=== PATIENT | female | born 1960 | race Caucasian/White ===

== ENCOUNTER 2017-10-05 11:32 | Day surgery (SDC) | payer BC ==
[~2017-10-05] VITALS: Ht 172.7 cm; Wt 95.5 kg
[~2017-10-05 11:32] MED LIST: COZAAR50 MG; HYDROCODON-ACE1 EAC7 PO; HYDROCODONE-APA1 TAB PO; IBUPROFEN200 MG PO; LEXAPRO20 MG PO; LISINOPRIL10 MG PO; MEDROL DOSE PACK4 MG PO; NORVASC10 MG PO; SOMA350 MG PO
[2017-10-05 12:48] LABS: BASOPHILS 0.5 % (0-2); HEMOGLOBIN 15.8 g/dL (12-16); IMMATURE GRANULOCYTES 0.2 % (0-5); LYMPHOCYTES 35.3 % (15-50); MCH 31.6 pg (26.0-34.0); MCHC 34.3 g/dL (31.0-37.0); MEAN PLATELET VOLUME 10.8 fL (7.4-10.4); MONOCYTES 7.4 % (2-11); NEUTROPHILS 55.6 % (40-80); PLATELET COUNT 208 10x3/uL (130-400); RDW 12.8 % (11.5-14.5); WBC 6.2 10x3/uL (4.8-10.8)
[2017-10-05] MEDS ORDERED: RESTORIL7.5 MG PO (13:01)
[2017-10-05 13:05] VITALS: BP 111/80; Ht 172.7 cm; Wt 95.5 kg
[2017-10-05 13:18] LABS: CALC OSMOLALITY 277 mosm/kg (275-300); CALCIUM 9.4 mg/dL (8.5-10.1); CHLORIDE - SERUM 102 mmol/L (98-107); CREATININE - SERUM 0.7 mg/dL (0.6-1.3); GLUCOSE 99 mg/dL (74-106); SODIUM 140 mmol/L (136-145); UREA NITROGEN 9 mg/dL (7-18); eGFR NON AFRICAN AMERICAN > 90 mL/min (90-120)
--- NOTE | 2017-10-13 11:51 | OP ---
PATIENT NAME: CHAPARRITA AHUJA MEDICAL RECORD: [id number] :60 LOCATION:D.[facility] ADMISSION DATE: SURGEON: JOSLYN GUTIERREZ DO DATE OF OPERATION: 10/05/2017 PROCEDURES: EGD with biopsy and colonoscopy with biopsy and polypectomy. INDICATIONS FOR PROCEDURE: Left upper quadrant abdominal pain, right lower quadrant abdominal pain, heartburn, H. pylori gastritis status post treatment, diarrhea. SCOPE: Olympus video gastroscope and Olympus video pediatric colonoscope. MEDICATIONS: Propofol 750 mg IV per anesthesia between the 2 procedures. WITHDRAWAL TIME: On colonoscopy 22 minutes. ESTIMATED BLOOD LOSS: Minimal. COMPLICATIONS: None. FINDINGS: Informed consent was given. The patient was made comfortable with the above medication. After reaching an adequate level of sedation by slow IV push, the patient was placed on her left side. The gastroscope was then advanced under direct visualization through the mouth to the second portion of the duodenum. The entire esophagus appeared normal. At the GE junction, there was evidence of LA class C reflux-induced esophagitis. The endoscope was advanced beyond the GE junction into the stomach and retroflexed to view the cardia and fundus which appeared normal. There was possibly a very small sliding type hiatal hernia, but this was not severe. The body of the stomach as well as the antrum and prepyloric region revealed some erythema and granularity consistent with possible gastritis. Biopsies were taken. The endoscope was advanced beyond the pylorus into the duodenum which appeared normal. Random biopsies were taken from the bulb and second portion of the duodenum. The scope was then withdrawn from the patient. Upon withdrawal, the hypopharynx was examined. There was a plaque located within the hypopharynx that looked like it could be a papilloma versus an HPV lesion versus squamous dysplasia. The endoscope was then withdrawn completely from the patient. The patient was turned around and the colonoscopy was then begun. A digital rectal examination was performed and was normal. The endoscope was then advanced under direct visualization through the rectum to the cecum with visualization of the appendiceal orifice and ileocecal valve. The scope was slowly withdrawn and the mucosa was carefully examined. The prep quality was adequate. During this examination, there was stool collected to submit for infectious workup as well as random biopsies to rule out microscopic colitis. On this examination, there were multiple benign-appearing sessile polyps. They all ranged in size from 3 mm to approximately 8-9 mm in diameter. First was located in the cecum. It was removed using hot forceps. In the ascending colon, there were two separate polyps which were removed using hot snare in 1 piece and completely retrieved. In the descending colon, there was a single polyp, which was removed using a hot snare. In the sigmoid colon, there was a single polyp, which was removed using hot forceps. In the rectum, the final polyp was visualized and was removed using hot forceps. Retroflexion was performed in the rectum with visualization of prior intervention in the form of a hemorrhoidectomy. The endoscope was then withdrawn from the patient. The patient tolerated the procedure well and there OPERATIVE REPORT [id number] CHAPARRITA AHUJA IRVIN were no complications. IMPRESSIONS FOR BOTH PROCEDURES: 1. A hypopharynx plaque concerning for a papilloma versus an HPV lesion versus a squamous dysplasia lesion. 2. LA class C reflux-induced esophagitis. 3. Erythema and granularity of the stomach consistent with gastritis, biopsies pending. 4. Multiple polyps as described above, removed using hot forceps and hot snares. All polyps were removed completely and fulgurated and will be submitted for histopathology. There was also random biopsies and stool collected during the procedure. PLAN AND RECOMMENDATIONS: 1. Discharge home when recovery parameters are met. 2. Follow up biopsy specimen results. 3. Referral to ENT regarding the hypopharynx plaque. 4. We will initiate a PPI at 40 mg equivalent daily to be taken in the morning, 15-30 minutes before eating or drinking anything. 5. Follow up biopsy specimen results regarding the colonoscopy. At that time, if biopsies are normal between the upper and lower endoscopy, we will start some medications for symptoms. I will give a trial of dicyclomine at this time for p.r.n. use for abdominal pain or loose stools while awaiting biopsy results. TRANSINT:[id number] Voice Confirmation ID: [id number] DOCUMENT ID: [id number] JOSLYN GUTIERREZ DO at 1151 CC: [id number] DICTATION DATE: 10/05/17 1557 LOSS PREVENTION COORDINATOR: 10/05/17 1719 [facility] 10/05/17 [place] [address]
== END 2017-10-05 17:05 | disposition home or self-care (01) ==
LOC: D.OPS 11:32
PROVIDERS: Anesthesiology
DX: K21.0 Gastro-esophageal reflux disease with esophagitis (principal); K29.50 Unspecified chronic gastritis without bleeding; B96.81 Helicobacter pylori [H. pylori] as the cause of diseases classified elsewhere; D12.2 Benign neoplasm of ascending colon; D12.0 Benign neoplasm of cecum; K63.5 Polyp of colon; Z01.812 Encounter for preprocedural laboratory examination

== ENCOUNTER → 2017-11-10 08:12 | Outpatient (CLI) | payer BC ==
[2017-10-05 13:05] VITALS: BMI 32.0
[~2017-11-10 08:12] MED LIST changes: +RESTORIL7.5 MG PO
== END | disposition home or self-care (01) ==
LOC: D.CT 08:12
DX: R31.9 Hematuria, unspecified (principal); R10.9 Unspecified abdominal pain; M54.9 Dorsalgia, unspecified

== ENCOUNTER 2018-07-14 22:27 | Outpatient (CLI) | payer BC ==
[2017-10-05 13:05] VITALS: BMI 32.0
== END 2018-07-14 23:59 | disposition home or self-care (01) ==
LOC: D.MAMMO 22:27
DX: Z12.31 Encounter for screening mammogram for malignant neoplasm of breast (principal)

== ENCOUNTER → 2018-09-01 16:39 | Outpatient (CLI) | payer BC ==
[2017-10-05 13:05] VITALS: BMI 32.0
== END | disposition home or self-care (01) ==
LOC: D.US 16:30
DX: R10.9 Unspecified abdominal pain (principal); M54.5 Low back pain

== ENCOUNTER → 2019-02-19 09:14 | Outpatient (CLI) | payer BC ==
[2017-10-05 13:05] VITALS: BMI 32.0
[~2019-02-19 09:14] MED LIST changes: +DILAUDID4 MG PO; +RESTORIL15 MG PO; +VALIUM10 MG PO
== END | disposition home or self-care (01) ==
LOC: D.MRI 09:00
PROVIDERS: ATTEND Neurological Surgery
DX: M54.12 Radiculopathy, cervical region (principal)

== ENCOUNTER 2019-03-01 07:54 | Emergency (ER) | payer BC ==
[~2019-03-01 07:54] MED LIST changes: -DILAUDID4 MG PO; -RESTORIL15 MG PO; -VALIUM10 MG PO
[2019-03-01 07:58] VITALS: BMI 33.0
[2019-03-01] MEDS ORDERED: RESTORIL15 MG PO (08:01)
[2019-03-01] MEDS ORDERED: SOMA350 MG PO (08:03)
[2019-03-01] MEDS ORDERED: DILAUDID4 MG PO (08:29)
[2019-03-01] MEDS ORDERED: VALIUM10 MG PO (08:29)
[2019-03-01 09:05] VITALS: BP 153/82
== END 2019-03-01 09:08 | disposition home or self-care (01) ==
LOC: D.ER 07:54
DX: M54.2 Cervicalgia (principal)

== ENCOUNTER 2019-03-06 05:25 | Day surgery (SDC) | payer BC ==
[2019-03-06] VITALS (16 sets, daily range): BP systolic 115–150; BP diastolic 41–86; Ht 172.7 cm; Wt 97.7 kg
[~2019-03-06] VITALS: Ht 172.7 cm; Wt 97.7 kg
--- NOTE | ~2019-03-06 | OP ---
PATIENT NAME: CHAPARRITA AHUJA MEDICAL RECORD: [id number] :60 LOCATION:D.[facility] ADMISSION DATE: SURGEON: JORGE ESCOBAR MD DATE OF OPERATION: 03/06/2019 PREOPERATIVE DIAGNOSES: Right C5 radiculopathy secondary to osteophyte formation and disc herniation at C4-C5 on the right. POSTOPERATIVE DIAGNOSES: Right C5 radiculopathy secondary to osteophyte formation and disc herniation at C4-C5 on the right. PROCEDURES: Anterior cervical discectomy and fusion with Zavation anterior cervical plate and screws, PEEK interbody cage, Xochilt bone allograt, removal of osteophytes. SURGEON: Jorge Escobar MD DESCRIPTION OF TECHNIQUE: After induction of general endotracheal anesthesia, the patient was positioned supine on the operating table with an interscapular roll. Neck was prepped and draped in usual sterile fashion. Fluoroscopic x-ray and [place] dissector localized the C4-C5 interspace. After infiltration of 1:100,000 epinephrine with 1% lidocaine, a transverse skin incision was carried out from the midline to the sternocleidomastoid muscle. The platysma was divided with Bovie cautery. Using blunt and sharp dissection with Metzenbaum scissors, I proceeded in avascular plane medial to the carotid sheath. The C4-C5 interspace was identified with fluoroscopic x-ray and a spinal needle. The longus colli muscles were elevated from bodies of C4 and C5. A self-retaining retractor was placed deep to longus colli muscles. [place] distracting pins were placed in the bodies of C4 and C5. The disc space was incised under distraction. The disc material was removed with pituitary rongeurs and curettes. Osteophytes were drilled away posteriorly under microscopic illumination with a Midas-Robert drill. The posterior longitudinal ligament was removed with Cloward rongeurs. Following this, the dura was decompressed well and a foraminotomy was carried out on both sides with Cloward rongeurs. Next, a PEEK interbody cage was placed in the disc space under distraction. Prior to this, it was filled with Xochilt bone allograft. A separate anterior cervical plate from [facility] spine was used to span the C4-C5 interspace. Self-drilling screws were placed through the holes and plate. Locking cams were tightened down over the screw heads. Good position of the hardware was confirmed with fluoroscopic x-ray. Meticulous hemostasis was maintained throughout the wound. The wound was irrigated with copious amounts of Ancef irrigant solution. The platysma and subdermal layer were closed with interrupted 3-0 Vicryl suture. The skin was reapproximated with Steri-Strips and benzoin. A sterile dressing was applied to the wound. The patient was awakened in good condition and taken to recovery. All counts were reported as correct. Estimated blood loss was minimal. TRANSINT:[id number] Voice Confirmation ID: [id number] DOCUMENT ID: [id number] OPERATIVE REPORT [id number] CHAPARRITA AHUJA JOHN MD CC: [id number] DICTATION DATE: 03/19/191749 APPRENTICE COSMETOLOGIST: 03/19/192201 [facility] 03/07/19 [facility] [address] [place] [address]
[2019-03-06 05:15] LABS: HEMATOCRIT 45.1 % (36.0-48.0); HEMOGLOBIN 15.3 g/dL (12-16); MCH 31.7 pg (26.0-34.0); MCHC 33.9 g/dL (31.0-37.0); MCV 93.4 fL (80.0-100.0); MEAN PLATELET VOLUME 10.8 fL (7.4-10.4); RBC 4.83 10x6/uL (4.00-5.40); RDW 14.3 % (11.5-14.5); WBC 9.5 10x3/uL (4.8-10.8)
[~2019-03-06 05:25] MED LIST changes: +DILAUDID4 MG PO; +RESTORIL15 MG PO; +VALIUM10 MG PO
[2019-03-06] MEDS ORDERED: NORVASC10 MG PO (06:32)
--- NOTE | 2019-03-06 11:32 | NUR ---
RECIEVED FROM ASSESSMENT COMPLETE.
[2019-03-07] VITALS (8 sets, daily range): BP systolic 110–147; BP diastolic 59–91
--- NOTE | 2019-03-07 07:30 | NUR ---
REPORT RECEIVED. SHIFT ASSESSMENT COMPLETE. PT UP IN CHAIR AT THIS TIME. VOICES NO NEEDS. READY FOR DR MAY TO COME SEE HER SO SHE CAN GO HOME.
--- NOTE | 2019-03-07 10:02 | NUR ---
DR MAY HAS BEEN BY TO CHECK ON PATIENT. WILL DISCHARGE. WANTS HER TO SEE HIM IN CLINIC IN 2 WEEKS.
--- NOTE | 2019-03-07 10:26 | NUR ---
FOLLOW UP APPOINTMENT SET FOR February AT 1PM WITH DR MAY
--- NOTE | 2019-03-07 11:07 | NUR ---
DISCHARGE INSTRUCTIONS PROVIDED TO PT AND . WRITTEN SCRIPT PROVIDED FOR PAIN MEDICATION. UNDERSTANDS PLANS FOR FOLLOW UP CARE. WAS INSTRUCTED NOT TO DRIVE FOR [address] MAY.
== END 2019-03-07 11:00 | disposition home or self-care (01) ==
LOC: D.CVICU 05:25 → D.OPS 05:25 → D.CVICU 10:41 → D.OPS 03-07 11:00 → D.PAN 03-09 11:45
PROVIDERS: Anesthesiology; ATTEND Neurological Surgery
DX: M50.121 Cervical disc disorder at C4-C5 level with radiculopathy (principal); M25.78 Osteophyte, vertebrae

== ENCOUNTER → 2019-03-29 09:08 | Outpatient (CLI) | payer BC | END | disposition home or self-care (01) | LOC: D.US 09:08 | DX: R10.2 Pelvic and perineal pain (principal); N93.9 Abnormal uterine and vaginal bleeding, unspecified ==

== ENCOUNTER → 2019-08-10 11:54 | Outpatient (CLI) | payer BC ==
[2019-03-06 11:14] VITALS: BMI 32.7
== END | disposition home or self-care (01) ==
LOC: D.MRI 11:54
PROVIDERS: ATTEND Neurological Surgery
DX: M54.12 Radiculopathy, cervical region (principal)

== ENCOUNTER 2019-12-23 10:48 | Emergency (ER) | payer BC ==
[~2019-12-23] VITALS: Ht 172.7 cm; Wt 102.3 kg
[2019-12-23 11:00] VITALS: Ht 172.7 cm; Wt 102.3 kg
[2019-12-23] MEDS ORDERED: MOBIC7.5 MG PO (12:29)
[2019-12-23] MEDS ORDERED: SKELAXIN800 MG PO (12:29)
[2019-12-23 12:38] VITALS: BP 138/68
== END 2019-12-23 12:38 | disposition home or self-care (01) ==
LOC: D.ER 10:48
DX: S43.402A Unspecified sprain of left shoulder joint, initial encounter (principal); M62.838 Other muscle spasm; I10 Essential (primary) hypertension; E78.5 Hyperlipidemia, unspecified; W19.XXXA Unspecified fall, initial encounter; Y93.9 Activity, unspecified; Y92.9 Unspecified place or not applicable

== ENCOUNTER 2020-07-16 17:30 | Outpatient (CLI) | payer BC ==
[2019-12-23 11:00] VITALS: BMI 34.2
[~2020-07-16 17:30] MED LIST changes: +MOBIC7.5 MG PO; +SKELAXIN800 MG PO
== END 2020-07-16 23:59 | disposition home or self-care (01) ==
LOC: D.MAMMO 17:30
PROVIDERS: ATTEND Family Medicine
DX: Z12.31 Encounter for screening mammogram for malignant neoplasm of breast (principal)

== ENCOUNTER → 2021-03-12 09:47 | Outpatient (CLI) | payer BC ==
[2019-12-23 11:00] VITALS: BMI 34.2
== END | disposition home or self-care (01) ==
LOC: D.MRI 09:47
PROVIDERS: ATTEND Neurological Surgery
DX: M54.12 Radiculopathy, cervical region (principal)